=== PATIENT | male | born 1945 | race Caucasian/White ===

== ENCOUNTER 2018-03-23 11:34 | Emergency (ER) | payer MEDICARE ==
[2018-03-23] MEDS ORDERED: METHYLPREDNISOLONE PF 125MG/VIAL IVP ONE (11:41)
[2018-03-23] MEDS ORDERED: IPRATROPIUM/ALBUTEROL (0.5MG/3MG) NEB INH ONE (11:43)
[2018-03-23 12:18] LABS: HEMATOCRIT 33.8 % (42.0-52.0); HEMOGLOBIN 9.8 gm/dl (14.0-18.0); MEAN CELL VOLUME 97.4 fl (81-97); MEAN CORPUSCULAR HEMOGLOBIN 28.2 pg (27-33); MEAN PLATELET VOLUME 9.6 fl (7.4-10.4); PLATELET COUNT 287 K/uL (130-400); RED BLOOD COUNT 3.47 M/uL (4.40-5.70); RED CELL DISTRIBUTION WIDTH 14.7 % (11.5-14.5); WHITE BLOOD COUNT W/O DIFF 9.1 K/uL (4.2-12.2)
[2018-03-23 12:31] LABS: HYPOCHROMIA 1+; PLATELET ESTIMATE NORMAL (NORMAL)
[2018-03-23 12:32] LABS: CREATININE 1.9 mg/dL (0.7-1.2)
[2018-03-23] MEDS ORDERED: LEVOFLOXACIN/D5W 750 MG/150 ML BAG IVPB ONE (12:50)
--- NOTE | 2018-03-23 12:50 | Emergency Department Record ---
History of Present Illness - General Chief Complaint: Shortness of breath Stated Complaint: AMADA Time Seen by Provider: 03/23/18 11:39 Source: Patient, Family Mode of Arrival: Wheelchair Limitations: No limitations - History of Present Illness Initial Comments: pt has been getting increasingly short of breathnover the last few days. pt was at [facility] 2 days ago and they wanted to admit him and he left [facility] because he was concerned about intubation.pt has a hx of being intubated and having a trach. he was told he had pneumonia MD Complaint: Shortness of breath Consistency: Constant, Getting worse Known History Of: COPD Associated Symptoms: Cough Treatments Prior to Arrival: Bronchodilator - Related Data Home Oxygen Therapy: Yes Home Oxygen Amount: 3 Liters Home Medications Medication Instructions Recorded Confirmed Last Taken Insulin Detemir [Levemir Flextouch] 30 unit SQ QHS 03/23/18 03/23/18 Unknown Ipratropium/Albuterol [Duoneb] 3 ml IH Q4H 03/23/18 03/23/18 Unknown Allergies Allergy/AdvReac Type Severity Reaction Status Date / Time adhesive tape Allergy RASH Verified 03/23/18 11:40 neomycin Allergy RASH Verified 03/23/18 11:40 Travel Screening - Travel/Exposure Within Last 30 Days Have you traveled within the last 30 days?: No Review of Systems Reviewed: No additional complaints except as noted below Constitutional: Reports: As per HPI. Denies: Chills, Fever, Malaise, Night sweats, Weakness, Weight change Eyes: Reports: As per HPI. Denies: Eye discharge, Eye pain, Photophobia, Vision change ENT: Reports: As per HPI. Denies: Congestion, Dental pain, Ear pain, Epistaxis , Hearing loss, Throat pain Respiratory: Reports: As per HPI. Denies: Cough, Dyspnea, Hemoptysis, Stridor, Wheezes Cardiovascular: Reports: As per HPI. Denies: Arrhythmia, Chest pain, Dyspnea on exertion, Edema, Murmurs, Orthopnea, Palpitations, Paroxysmal nocturnal dyspnea, Rheumatic Fever, Syncope Endocrine: Reports: As per HPI. Denies: Fatigue, Heat or cold intolerance, Polydipsia, Polyuria Gastrointestinal: Reports: As per HPI. Denies: Abdominal pain, Constipation, Diarrhea, Hematemesis, Hematochezia, Melena, Nausea, Vomiting Genitourinary: Reports: As per HPI. Denies: Dysuria, Frequency, Hematuria, Incontinence, Retention, Testicular pain, Testicular mass, Urgency Musculoskeletal: Reports: As per HPI. Denies: Arthralgia, Back pain, Gout, Joint swelling, Myalgia, Neck pain Skin: Reports: As per HPI. Denies: Bruising, Change in color, Change in hair/ nails, Lesions, Pruritus, Rash Neurological: Reports: As per HPI. Denies: Abnormal gait, Confusion, Headache, Numbness, Paresthesias, Seizure, Tingling, Tremors, Vertigo, Weakness Psychiatric: Reports: As per HPI. Denies: Anxiety, Auditory hallucinations, Depression, Homicidal thoughts, Suicidal thoughts, Visual hallucinations Hematological/Lymphatic: Reports: As per HPI. Denies: Anemia, Blood Clots, Easy bleeding, Easy bruising, Swollen glands Past Medical History - SOCIAL HISTORY Smoking Status: Former smoker Alcohol Use: None Drug Use: None - RESPIRATORY Hx Respiratory Disorders: Yes Hx COPD: Yes Comment:: 3liters all times - CARDIOVASCULAR Hx Cardio Disorders: Yes Hx Hypertension: Yes Comment:: high cholesterol - NEURO Hx Neuro Disorders: No - GI Hx GI Disorders: Yes Hx Reflux: Yes - Hx Genitourinary Disorders: No - ENDOCRINE Hx Endocrine Disorders: Yes Hx Diabetes: Yes - MUSCULOSKELETAL Hx Musculoskeletal Disorders: No - PSYCH Hx Psych Problems: No - HEMATOLOGY/ONCOLOGY Hx Hematology/Oncology Disorders: No Family Medical History Any Significant Family History?: No Physical Exam - General General Appearance: Alert, Oriented x3, Cooperative, Moderate distress - Head Head exam: Normal inspection - Eye Eye exam: Normal appearance, PERRL, EOMI Pupils: Normal accommodation - ENT ENT exam: Normal exam, Mucous membranes moist, Normal external ear exam, Normal orophraynx Ear exam: Normal external inspection. negative: External canal tenderness Nasal Exam: Normal inspection. negative: Discharge, Sinus tenderness Mouth exam: Normal external inspection, Tongue normal Teeth exam: Normal inspection. negative: Dental caries Throat exam: Normal inspection. negative: Tonsillar erythema, Tonsillar exudate - Neck Neck exam: Normal inspection, Full ROM. negative: Tenderness - Respiratory Respiratory exam: Decreased breath sounds, Respiratory distress, Stridor - Cardiovascular Cardiovascular Exam: Regular rate, Normal rhythm, Normal heart sounds - GI/Abdominal GI/Abdominal exam: Soft, Normal bowel sounds. negative: Tenderness - Rectal Rectal exam: Deferred - exam: Deferred - Extremities Extremities exam: Normal inspection, Full ROM, Normal capillary refill. negative: Tenderness - Back Back exam: Reports: Normal inspection, Full ROM. Denies: Muscle spasm, Rash noted, Tenderness - Neurological Neurological exam: Alert, CN II-XII intact, Normal gait, Oriented X3 - Psychiatric Psychiatric exam: Normal affect, Normal mood - Skin Skin exam: Dry, Intact, Normal color, Warm Course Vital Signs 03/23/18 03/23/18 03/23/18 11:36 11:45 11:48 Temperature 97.7 F Pulse Rate 83 81 Respiratory 24 26 H Rate Blood Pressure 158/92 Pulse Ox 89 L 97 98 - Reevaluation(s) Reevaluation #1: 03/23/18 12:54 pt placed on bi pap Medical Decision Making - Lab Data Result diagrams: 03/23/18 12:12 03/23/18 12:12 Lab Results 03/23/18 03/23/18 Range/Units 12:12 12:12 WBC 9.1 (4.2-12.2) K/uL RBC 3.47 L (4.40-5.70) M/uL Hgb 9.8 L (14.0-18.0) gm/dl Hct 33.8 L (42.0-52.0) % MCV 97.4 H (81-97) fl MCH 28.2 (27-33) pg MCHC 29.0 L (32-36) g/dl RDW 14.7 H (11.5-14.5) % Plt Count 287 (130-400) K/uL MPV 9.6 (7.4-10.4) fl Neutrophils % 81.0 H (47-80) % Eosinophils % Not Reportable Basophils % Not Reportable Lymphocytes 17.0 (16-45) % Monocytes 2.0 (0-9) % Platelet Estimate Normal (NORMAL) Hypochromasia 1+ Sodium 146 H (136-145) mmol/L Potassium 5.1 H (3.4-4.5) mmol/L Chloride 103 (98-107) mmol/L Carbon Dioxide 33.0 H (22-29) mmol/L Anion Gap 10.0 (7-16) BUN 47 H (8-23) mg/dL Creatinine 1.9 H (0.7-1.2) mg/dL Estimated GFR 37 mL/min Random Glucose 96 (74-109) mg/dL Calcium 9.2 (8.8-10.2) mg/dL NT-Pro-B Natriuret Pep 1333.00 H (<450) pg/mL Disposition Disposition: Transfer Clinical Impression: Pneumonia Qualifiers: Pneumonia type: due to unspecified organism Laterality: bilateral Lung location : unspecified part of lung Qualified Code(s): J18.9 - Pneumonia, unspecified organism Respiratory failure Qualifiers: Chronicity: acute Respiratory failure complication: hypoxia Qualified Code(s): J96.01 - Acute respiratory failure with hypoxia Disposition: [facility] Transfer Transfer To: [facility] Reason For Transfer: resp failure Accepting Physician: dr Patton Time Discussed w/Accepting Physician: 12:53 Quality - Quality Measures Quality Measures: N/A - Blood Pressure Screening Does Patient Have Any of the Following: Active Dx of HTN Blood Pressure Classification: Hypertensive Reading Systolic Measurement: 158 Diastolic Measurement: 92 Screening for High Blood Pressure: Patient Exclusion, Hx of HTN [G9744]
[2018-03-23 12:53] LABS: ARTERIAL BLD GAS O2 SATURATION 95.5 % (95-98); ARTERIAL BLOOD GAS BASE EXCESS 4.1 mmol/L (-2 - 3); ARTERIAL BLOOD GAS HCO3 31.9 mmol/L (18-23); ARTERIAL BLOOD GAS pH 7.27 (7.35-7.45); CARBOXYHEMOGLOBIN 1.3 % (0-1.5); METHEMOGLOBIN 0.4 % (0.0-1.5); O2 HEMOGLOBIN 93.8 % vol (94-99); TOTAL HEMOGLOBIN 9.7 g/dl (14-18)
[2018-03-23 12:56] LABS: ARTERIAL BLOOD GAS PCO2 72.2 mmHg (35-48)
[2018-03-23 12:57] LABS: ALLEN TEST NOT DONE
--- NOTE | 2018-03-25 10:33 | RADIOLOGY REPORT ---
EXAM: CHEST 1 VIEW HISTORY: DIFFICULTY IN BREATHING, FORMER SMOKER, HISTORY OF COPD. TECHNIQUE: Single portable frontal view of the chest. COMPARISON: None. FINDINGS: Low inspiratory lung volumes. Cardiomediastinal silhouette appears enlarged. Indistinct pulmonary vasculature. Asymmetric elevation of the left hemidiaphragm. Bilateral interstitial and alveolar pulmonary opacities, predominantly in the perihilar and basilar regions and slightly more pronounced on the left. Obscuration of the left lateral costophrenic angle, which may represent a small pleural effusion. No pneumothorax. No definite osseous findings. IMPRESSION: 1. CARDIOMEDIASTINAL [place]ETTE ENLARGEMENT WITH LEFT GREATER THAN RIGHT PULMONARY OPACITIES; APPEARANCE MOST SUGGESTIVE OF CONGESTIVE HEART FAILURE WITH PULMONARY EDEMA. 2. POSSIBLE SMALL LEFT PLEURAL EFFUSION. JOB NUMBER: [id number] [facility]
== END 2018-03-23 13:20 | disposition short-term general hospital (02) ==
LOC: ER 11:34
DX: J96.01 Acute respiratory failure with hypoxia (principal); J18.9 Pneumonia, unspecified organism; I10 Essential (primary) hypertension; J44.9 Chronic obstructive pulmonary disease, unspecified; Z99.81 Dependence on supplemental oxygen; Z87.891 Personal history of nicotine dependence
CPT/HCPCS: 99285 ×2; 96365; 96375; 82375; 80048; 82803; 85027; 83880; 71045; 94640; 36600; 94660; J1956; J2930